=== PATIENT | female | born 1940 | race Caucasian/White ===

== ENCOUNTER 2016-04-13 17:54 | Emergency (ER) | payer MEDICARE ==
[2016-04-13 17:55] VITALS: BMI 27.1
[2016-04-13 18:04] VITALS: TEMP 98.5
--- NOTE | 2016-04-13 18:59 | EDPRACDOC ---
- General Information Chief Complaint: Generalized Weakness Stated Complaint: WEAKNESS Time Seen by Provider: 04/13/16 18:45 Mode Of Arrival: Car Home Medications: Home Medications Amiodarone HCl [Pacerone] 200 mg PO DAILY 01/01/14 Aspirin (Enteric Coated) [Halfprin] 81 mg PO HS 01/01/14 Calcium Carbonate [Caltrate 600] 600 mg PO DAILY 01/01/14 Cholecalciferol [Vitamin D3 (cholecalciferol)] 1,000 units PO DAILY 01/01/14 Clopidogrel Bisulfate [Plavix] 75 mg PO DAILY 01/01/14 Folic Acid 1 mg PO DAILY 01/01/14 Lisinopril [Zestril] 5 mg PO BID 01/01/14 Nitroglycerin [Nitrostat] 0.4 mg SL [id number] PRN 01/01/14 Rosuvastatin Calcium [Crestor] 20 mg PO HS 01/01/14 Bupropion HCl [Wellbutrin Xl] 150 mg PO DAILY 04/13/16 Carvedilol 6.25 mg PO BID 04/13/16 Meclizine HCl 25 mg PO DAILY #20 tablet 04/13/16 Ondansetron [Zofran Odt] 4 mg PO TID PRN #10 tab.rapdis 04/13/16 Allergies/Adverse Reactions: Allergies Allergy/AdvReac Type Severity Reaction Status Date / Time codeine Allergy other Verified 04/13/16 18:24 - History of Present Illness Onset: 829 HPI: C/o lightheadedness, falling,, dec energy, high BP, episodes of "cloudy" vision , nausea, inc urinary freq starting this am. Lightheadedness started while exercising. Stopped exercising and cont to feel lightheaded and started staggering around and falling. Denies pain or injury from falling. Denies cp, sob, fever, cough, sore throat, vomiting, diarrhea. Med hx = CAD with triple bypass, stent placement, HDL, DM, HTN. Surgical hx = [facility], appy. Police Specialist = [facility], last appt 5 months ago. last stress test 01/03/14 NEG for ischemia, EF nml. Pt has Rx for nitrostat but never takes it. Symptoms Started: Reports: Suddenly, With light exertion Symptoms Description: Constant Symptoms: Reports: Change of vision, Imbalance, Near Syncope, Weak Relevant History of: Reports: DM Associated signs and symptoms:: Reports: Nausea ED Past Medical History - History Reviewed Yes Nurses notes reviewed and agree except as marked - Patient Medical History Cardiac History: Reports: Coronary Artery Disease, Atrial Fibrillation, Hypertension, Heart Attack, Cardiac Catheterization, CABG, Stress Test, Hypercholesterolemia Psychological History: Denies: Substance Use Disorder Systemic History: Reports: Diabetes. Denies: Cancer Surgical History: Reports: CABG, Cardiac Catheterization, Tonsillectomy/ Adnoidectomy, Other (bilateral tubal ligation, cataracts extracted) - Family Medical History Reports: Hypertension (Dad, sister), Diabetes (sister), Cancer (father had male breast cancer), Cardiac Disorders (mom had CHF, Dad w/ CAD) - Social Medical History Social History: Denies: Substance Use Disorder EDM Review of Systems - Review of Systems ROS Negative Except as Marked: Yes All systems reviewed and were negative except as marked Eyes: Other (cloudy vision) Gastrointestinal: Nausea Neurological: Dizziness, Weakness Endocrine: Diabetes - Physical Exam Constitutional: No apparent distress, Alert Oriented to: Time, Person, Place Last recorded Vital Signs: Last Vital Signs Temp 98.5 F 04/13/16 17:57 Pulse 67 04/13/16 18:27 Resp 18 04/13/16 18:27 BP 209/89 H 04/13/16 18:27 Pulse Ox 94 04/13/16 17:57 Oxygen Pulse Oxygen Saturation 94 O2 Device Room Air Oxygen Flow Rate Fraction of Inspired Oxygen ( FIO2) - HEENT Head: Normal Eye Exam: negative: Conjunctival Injection, Scleral Icterus Oropharynx: negative: Drooling TMJ: Normal Nose: No Symptoms Reported Neck: Normal - Respiratory/Cardiovascular Respiratory: Normal - CTA Cardiovascular: Normal - GI Tenderness: Non tender - Musculoskeletal Back: Normal Extremities: Normal - Integumentary Skin: Normal - Neurologic Motor Function: Normal Cranial Nerve: Normal Cerebellar: Normal Mood Description: Normal Thought: Coherent Perception: Normal - Neurologic Orientation: Time, Person, Place Speech: Fluent Coginitive: Normal Affect: Normal Thought: Coherent Perception: Normal - Results 04/13/16 18:50 04/13/16 18:50 - EKG EKG #1 EKG Time: 19:09 -: Yes EKG interpreted by me Rate: bpm: 67 Rhythm: NSR ST: Nonsp Comparison: 01/01/14 (Sinus shyam, otherwise same) - Diagnostic Imaging Head Image interpreted by: Radiologist EXAM: CT HEAD WITHOUT CONTRAST TECHNIQUE: Contiguous axial images were obtained from the base of the skull through the vertex without intravenous contrast. COMPARISON: Head CT scan 10/19/2010. Brain MRI 03/14/2006. FINDINGS: There is no evidence of acute intracranial abnormality including hemorrhage, infarct, mass lesion, mass effect, midline shift or abnormal extra-axial fluid collection. No hydrocephalus or pneumocephalus. Prominent cerebellar fissure on the left is unchanged. Imaged paranasal sinuses and mastoid air cells are clear. The calvarium is intact. IMPRESSION: No acute abnormality. Electronically Signed By: Pal Mathur M.D. On: 04/13/2016 19:42 Chest Image interpreted by: Radiologist EXAM: PORTABLE CHEST 1 VIEW COMPARISON: PA and lateral chest 04/07/2015. FINDINGS: The patient is status post CABG. Heart size is normal. Lungs are clear. No pneumothorax or pleural effusion. No focal bony abnormality. IMPRESSION: No acute disease. Electronically Signed By: Pal Mathur M.D. On: 04/13/2016 19:25 - Additional Information pt states her head feels much better with the meclizine Decision Time to Discharge: 20:59 - Departure Disposition: Home Condition: Stable Final Diagnosis: Vertigo Instructions: Vertigo (ED), Weakness (ED) Education/Counseling Given To: Patient, Family Member Education/Counseling Given Regarding: Diagnosis, Treatment, Prognosis, Follow Up Referrals: Jazzmine Lainez MD [Primary Care Provider] - One Week Tacos Pablo MD [Staff Physician] - One Week Prescriptions: New Meclizine HCl 25 mg PO DAILY #20 tablet Ondansetron [Zofran Odt] 4 mg PO TID PRN #10 tab.rapdis PRN Reason: Nausea/Vomiting No Action Cholecalciferol [Vitamin D3 (cholecalciferol)] 1,000 units PO DAILY Calcium Carbonate [Caltrate 600] 600 mg PO DAILY Rosuvastatin Calcium [Crestor] 20 mg PO HS Lisinopril [Zestril] 5 mg PO BID Aspirin (Enteric Coated) [Halfprin] 81 mg PO HS Clopidogrel Bisulfate [Plavix] 75 mg PO DAILY Nitroglycerin [Nitrostat] 0.4 mg SL Q5MX3 PRN PRN Reason: Chest Pain Or Discomfort Amiodarone HCl [Pacerone] 200 mg PO DAILY Folic Acid 1 mg PO DAILY Carvedilol 6.25 mg PO BID Bupropion HCl [Wellbutrin Xl] 150 mg PO DAILY Additional Instructions: Follow up with primary care and neurology Dr Pablo. Take meclizine for vertigo. Take zofran for nausea. Return to ED for any new or worsening symptoms.
[2016-04-13 19:08] LABS: AUTOMATED BASOPHIL 0.4 % (0-2); AUTOMATED LYMPH 26.3 % (17-44); AUTOMATED MONOCYTE 11.6 % (3-10); AUTOMATED NEUTROPHIL 60.7 % (45-76); MPV 7.5 fL (7.4-10.4)
[2016-04-13 19:14] LABS: BLOOD UREA NITROGEN 12 MG/DL (7-17); CALCIUM 9.5 MG/DL (8.4-10.2); CALCULATED OSMOLALITY 256 MOs/Kg (270-290); CHLORIDE 96 mEq/L (98-107); GLUCOSE 123 mg/dL (70-99); SODIUM LEVEL 132 mEq/L (137-146); TOTAL PROTEIN 7.4 G/DL (6.3-8.2)
[2016-04-13 19:16] LABS: PARTIAL THROMB. TIME 24.6 SEC (22-35)
[2016-04-13 19:16] LABS: LEUKOCYTES/URINE TRACE (NEGATIVE); NITRITE/URINE NEG (NEGATIVE); URINE OCCULT BLOOD 1+ (NEG/TRACE)
--- NOTE | 2016-04-13 19:28 | DIRPT ---
CLINICAL DATA: Lightheadedness, altered vision and falling beginning this morning. Initial encounter. EXAM: PORTABLE CHEST 1 VIEW COMPARISON: PA and lateral chest 04/07/2015. FINDINGS: The patient is status post CABG. Heart size is normal. Lungs are clear. No pneumothorax or pleural effusion. No focal bony abnormality. IMPRESSION: No acute disease. Electronically Signed By: Pal Mathur M.D. On: 04/13/2016 19:25
--- NOTE | 2016-04-13 19:44 | DIRPT ---
CLINICAL DATA: Dizziness beginning at 8:30 a.m. today. Hypertension. Vision changes. Initial encounter. EXAM: CT HEAD WITHOUT CONTRAST TECHNIQUE: Contiguous axial images were obtained from the base of the skull through the vertex without intravenous contrast. COMPARISON: Head CT scan 10/19/2010. Brain MRI 03/14/2006. FINDINGS: There is no evidence of acute intracranial abnormality including hemorrhage, infarct, mass lesion, mass effect, midline shift or abnormal extra-axial fluid collection. No hydrocephalus or pneumocephalus. Prominent cerebellar fissure on the left is unchanged. Imaged paranasal sinuses and mastoid air cells are clear. The calvarium is intact. IMPRESSION: No acute abnormality. Electronically Signed By: Pal Mathur M.D. On: 04/13/2016 19:42
[2016-04-13] MEDS ORDERED: METOPROLOL 5 MG/5 ML SDV IV ONE (19:55)
[2016-04-13] MEDS ORDERED: MECLIZINE 25 MG TAB PO ONE (19:59)
[2016-04-13 21:47] VITALS: BP 178/77; PULSE 63
== END 2016-04-13 21:48 | disposition home or self-care (01) ==
LOC: ED 17:54
DX: R42 Dizziness and giddiness (principal)
CPT/HCPCS: 36415; 70450; 71010; 80053; 81001; 84484; 85025; 85610; 85730; 93005; 96374; 99283; A9270; J3490